=== PATIENT | male | born 1990 | race Caucasian/White ===

== ENCOUNTER 2019-12-15 09:21 | Day surgery (SDC) | payer OTHER ==
--- NOTE | 2019-12-15 09:41 | ANESTHESIA ---
Pre-Anesthesia VS, & Labs - Diagnosis L knee ACL/meniscus tear - Procedure L knee arthroscopy, possible ACL repair Vital Signs: Temp Pulse Resp BP Pulse Ox 36.5 C 63 16 150/76 H 100 12/15/19 09:15 12/15/19 09:15 12/15/19 09:15 12/15/19 09:15 12/15/19 09:15 Height 5 ft 10 in Weight (kg) 92.99 kg - NPO >8 hours - Lab Results Lab results reviewed: Yes Home Medications and Allergies Home Medications: Ambulatory Orders Cetirizine [ZyrTEC] 10 mg PO DAILY 12/10/19 Cetirizine [ZyrTEC] 10 mg PO DAILY 12/10/19 Allergies/Adverse Reactions: Allergies Allergy/AdvReac Type Severity Reaction Status Date / Time No Known Drug Allergies Allergy Verified 12/10/19 14:00 Anes History & Medical History - Anesthetic History Anesthesia Complications: reports: No previous complications Family history of Anesthesia Complications: Denies Family history of Malignant Hyperthermia: Denies - Medical History Cardiovascular: reports: None Pulmonary: reports: None, Other (occasional social smoker (twice/month on average)) Gastrointestinal: reports: None Urinary: reports: None Musculoskeletal: reports: Other Endocrine/Autoimmune: reports: None Skin: reports: None Smoking Status: Current some day smoker Exam General: Alert, Oriented x3, Cooperative Dental: WNL Mouth Opening: Greater than 4 Fingerbreadths Neck Mobility: Normal Mallampati classification: I Thyromental Distance: 4-6 cm Respiratory: Lungs clear Cardiovascular: Regular rate Plan Anesthesia Type: General Consent for Procedure(s) Verified and Reviewed: Yes Code Status: Attempt Resuscitation ASA classification: 1-Healthy patient Is this case an emergency?: No
[2019-12-15] MEDS ORDERED: LACTATED RINGERS 1,000 ML IV ONE (09:52)
[2019-12-15] MEDS ORDERED: BUPIVACAINE 0.25% PF 30 ML VIAL ONE (10:03)
[2019-12-15] MEDS ORDERED: EPINEPHrine 1 MG/ML AMP ONE (10:03)
[2019-12-15] MEDS ORDERED: EPINEPHrine 1 MG/ML AMP IVP ONE ×2 (11:14)
[2019-12-15] MEDS ORDERED: BUPIVACAINE 0.25% PF 30 ML VIAL SUBQ ONE ×2 (11:15→12:39)
[2019-12-15] MEDS ORDERED: ONDANSETRON 4 MG/2 ML VIAL IVP ONE (11:15)
[2019-12-15] MEDS ORDERED: PROPOFOL 200 MG/20 ML VIAL IVP ONE (11:15)
[2019-12-15] MEDS ORDERED: fentaNYL 100 MCG/2 ML VIAL IVP ONE (11:15)
[2019-12-15] MEDS ORDERED: LIDOCAINE-MPF 2% 5 ML VIAL IM ONE (11:15)
[2019-12-15] MEDS ORDERED: oxyCODONE 5 MG TABLET PO PRN (12:53)
[2019-12-15] MEDS ORDERED: ONDANSETRON 4 MG/2 ML VIAL IVP PRN (12:53)
[2019-12-15] MEDS: HYDROmorphone 1 MG/ML CARPUJECT ONE ×2 (12:53→13:01)
[2019-12-15] MEDS ORDERED: KETOROLAC 30 MG/ML VIAL ONE (12:56)
--- NOTE | 2019-12-15 13:01 | OPERATIVE REPORT ---
Operative Report - Other Other Information/Narrative: Date of Surgery: 15 December 2019 Pre-Op Diagnosis: Left medial meniscus tear Procedure: Left knee arthroscopy with medial meniscus debridement. Medial plica excision Postop Diagnosis: Left medial meniscus tear, irrepairable. Medial plica Primary Surgeon: Josemanuel Kim Secondary Surgeon: Jori Miner Complications: None Tourniquet Time: 58 minutes EBL: 5 cc Indication For Surgery: 29-year-old male sustained a acute meniscus tear 1 year ago and was managed nonoperatively. He continues to have episodic sharp pain and the sensation of hyperextension. His examination showed a stable ACL and the MRI showed a posterior horn medial meniscus tear near the root. The risks, benefits, and alternatives were discussed. Risks include pain, bleeding, infection, damage to nearby structures and cartilage, lack of symptom relief, need for further surgery, DVT, PE, stroke, and . Written consent was obtained. Examination Under Anesthesia: ROM equal to the contralateral side. Stable dial at 30 & 90 degrees. Stable to varus and valgus stressing at 0 & 30 degrees. Normal Ramirez. Normal Pivot shift. No mechanical sensation Arthroscopic Findings: Loose bodies -none Synovium -prominent, thick medial plica with wear on the medial femoral condyle adjacent to it. This was excised Patella cartilage -normal Trochlear cartilage -normal Medial femoral condyle cartilage -partial thickness wear near the medial plica. Mild partial thickness wear on the weightbearing surface Medial tibial plateau cartilage -grade 1/2 changes posteriorly. Medial meniscus -a large parrot-beak tear of the posterior horn just adjacent to the root. The unstable portion was debrided back to a stable base. A peripheral rim of meniscus remained Anterior cruciate ligament -normal Posterior cruciate ligament -normal Lateral femoral condyle cartilage -normal Lateral tibial plateau cartilage -normal Lateral meniscus -normal Procedure in Detail: The patient was met in the pre-operative hold area on the day of the procedure. The operative extremity was signed and questions were answered. The patient was brought to the operating room and a general anesthetic was administered. Supine position was used and bony prominences were padded. An examination under anesthesia was performed. Standard prepping and draping was performed. A time out confirmed patient identification, laterality, procedure, allergies, antibiotics, and images. An Esmarch was used to exsanguinate the limb and the tourniquet was elevated to 250 mmHg. A standard diagnostic arthroscopy of the knee was performed through anterolateral and anteromedial portal sites. The anteromedial portal was created under direct visualization after localizing with a spinal needle. The findings can be found above. The medial side of the knee was very tight and significant valgus force with internal and external rotation of the foot was needed to visualize the posterior horn. I visualize the posterior horn through the Gillquist maneuver and this demonstrated that the root tissue was intact and a peripheral rim of tissue remained. The parrot-beak type tear was not repairable due to retraction and shape of the tear. I then proceeded to use a combination of biters and olivia as well as an additional portal through the patellar tendon to remove the portions of unstable medial meniscus. The body of the medial meniscus remained intact and was stable to probing in the medial part of the posterior horn was also intact and stable to probing. After I removed on all unstable portions final images were taken and the probe demonstrated stability throughout. I then proceeded to use the shaver to excise the medial plica until it did not rub along the medial femoral condyle. Final images were taken and all arthroscopic fluid and instruments were removed from the knee. The incisions were closed with buried monocryl sutures. Steri strips were applied. 10 cc of 0.25% Marcaine without epinephrine was injected near the portal sites. A sterile dressing and compression stocking was placed. The patient was awakened and transferred to recovery in stable condition.
[2019-12-15] MEDS ORDERED: HYDROmorphone 0.5 MG/0.5 ML SYRINGE ONE (13:20)
[2019-12-15] MEDS ORDERED: oxyCODONE 5 MG TABLET ONE (13:32)
[2019-12-15 13:33] VITALS: BP 124/96
== END 2019-12-15 09:22 | disposition home or self-care (01) ==
LOC: SDS 09:21
PROVIDERS: ATTEND Orthopaedic Surgery
DX: M23.222 Derangement of posterior horn of medial meniscus due to old tear or injury, left knee (principal); M67.52 Plica syndrome, left knee; F17.200 Nicotine dependence, unspecified, uncomplicated